=== PATIENT | male | born 1975 ===

== ENCOUNTER 2018-01-23 09:15 | Emergency (ER) | payer OTHER ==
[2018-01-23 09:20] VITALS: O2SAT 98
[2018-01-23 09:21] VITALS: BMI 30.6
[2018-01-23] MEDS ORDERED: Iohexol 240 (50 ml) PO ONE (10:11)
[2018-01-23] MEDS ORDERED: Iohexol 240 (50 ml) ONE (10:45)
[2018-01-23 10:51] LABS: BASO % 0.6 % (0.0-2.0); EOS # 0.2 K/uL (0.0-0.7); EOS % 1.8 % (0.0-4.0); HEMOGLOBIN 17.2 g/dL (12.0-18.0); LYMPH # 2.8 K/uL (1.0-4.3); MEAN CELL VOLUME 89.7 fl (80.0-94.0); MEAN CORPUSCULAR HEMOGLOBIN 31.4 pg (27.0-31.0); MEAN PLATELET VOLUME 10.1 fl (7.2-11.7); MONO # 0.8 K/uL (0.0-0.8); MONO % 9.5 % (0.0-10.0); NEUT # 4.5 K/uL (1.8-7.0); NEUT % 54.1 % (50.0-75.0); NRBC % 0.3 % (0.0-0.0); RBC 5.46 Mil/uL (4.40-5.90); RED CELL DISTRIBUTION WIDTH 13.5 % (11.5-14.5); WHITE BLOOD COUNT 8.3 K/uL (4.8-10.8)
[2018-01-23 10:56] LABS: ALB/GLOB RATIO 1.2 (1.0-2.1); ALBUMIN 4.7 g/dL (3.5-5.0); ALT/SGPT 269 U/L (21-72); AST/SGOT 123 U/L (17-59); BLOOD UREA NITROGEN 8 mg/dl (9-20); GFR AFRICAN-AMERICAN > 60; GFR NON-AFRICAN AMERICAN > 60; LIPASE 71 U/L (23-300)
[2018-01-23 11:08] LABS: URINE BILIRUBIN NEGATIVE (NEGATIVE); URINE BLOOD NEGATIVE (NEGATIVE); URINE CLARITY CLEAR (Clear); URINE COLOR YELLOW (YELLOW); URINE GLUCOSE (UA) NEG (Normal); URINE LEUKOCYTE ESTERASE NEG Leu/uL (Negative); URINE PROTEIN NEGATIVE (NEGATIVE); URINE UROBILINOGEN 0.2-1.0 mg/dL (0.2-1.0)
--- NOTE | 2018-01-23 11:19 | ED PDOC ---
HPI: Abdomen Time Seen by Provider: 01/23/18 09:25 Chief Complaint (Nursing): Male Genitourinary Chief Complaint (Provider): Lower Abdominal Pain History Per: Patient History/Exam Limitations: no limitations Onset/Duration Of Symptoms: Days (x1.5 months) Location Of Pain/Discomfort: Suprapubic Additional Complaint(s): Patient is a 42 y/o male with a history of HLD who presents to the ED complaining of lower abdominal pain with associated lower back pain, onset "a long time ago." Patient reports that he has had the pain for a long time and has been seeing his primary care provider frequently for the past 1.5 months for the pain but has not yet gotten any imaging of his abdomen. This past week however the pain has gotten much worse and has interfered with his ability to sleep, prompting the ED visit. Patient reports that sitting for a long time, urinating, and having bowel movements all exacerbate the pain. He reports painful burning sensation when he urinates or ejaculates. He denies any hematuria. PMD: [place], [place] Past Medical History Reviewed: Historical Data, Nursing Documentation, Vital Signs Vital Signs: Last Vital Signs Temp 98.1 F 01/23/18 15:09 Pulse 78 01/23/18 15:09 Resp 13 01/23/18 15:09 BP 120/74 01/23/18 15:09 Pulse Ox 98 01/23/18 15:12 - Medical History PMH: Hypercholesterolemia - Surgical History Surgical History: No Surg Hx - Family History Family History: States: Unknown Family Hx - Social History Current smoker - smoking cessation education provided: No Alcohol: None Drugs: Denies - Allergies Allergies/Adverse Reactions: Allergies Allergy/AdvReac Type Severity Reaction Status Date / Time No Known Allergies Allergy Verified 01/23/18 09:40 Review of Systems ROS Statement: Except As Marked, All Systems Reviewed And Found Negative Constitutional: Negative for: Fever Gastrointestinal: Positive for: Other (painful bowel movements) Genitourinary Male: Positive for: Dysuria, Frequency. Negative for: Hematuria Musculoskeletal: Positive for: Back Pain (lower) Physical Exam - Reviewed Nursing Documentation Reviewed: Yes Vital Signs Reviewed: Yes - Physical Exam Appears: Positive for: Non-toxic, No Acute Distress Head Exam: Positive for: ATRAUMATIC, NORMOCEPHALIC Skin: Positive for: Normal Color, Warm, Dry Eye Exam: Positive for: EOMI, Normal appearance, PERRL ENT: Positive for: Normal ENT Inspection Neck: Positive for: Normal, Painless ROM, Supple Cardiovascular/Chest: Positive for: Regular Rate, Rhythm. Negative for: Murmur Respiratory: Positive for: Normal Breath Sounds. Negative for: Respiratory Distress Gastrointestinal/Abdominal: Positive for: Normal Exam, Soft, Tenderness ( suprapubic tenderness to palpation) Back: Positive for: Normal Inspection. Negative for: L CVA Tenderness, R CVA Tenderness, Vertebral Tenderness Extremity: Positive for: Normal ROM. Negative for: Pedal Edema, Deformity Neurologic/Psych: Positive for: Alert, Oriented. Negative for: Motor/Sensory Deficits - Laboratory Results Result Diagrams: 01/23/18 10:31 07 10:31 - ECG O2 Sat by Pulse Oximetry: 98 (RA) Pulse Ox Interpretation: Normal Medical Decision Making Medical Decision Making: Time: 10:11 Initial Impression: suprapubic pain rule out uti, electrolute abnormality, infection or inflammation Initial Plan: --CT Abdomen pelvis PO & IV contrast --CMP --Lipase --CBC with differential --Omnipaque 50 ml PO --Urine C&S --Urinalysis Time: 13:28 CT abd & pelvis FINDINGS: LOWER THORAX: Heart size is borderline/mildly enlarged. No significant pericardial effusion. There is a small hiatal hernia. Lung bases clear without focal consolidation. There is a vague translucent opacity in the left posterior sulcus of likely representing some minor postinflammatory sequela. LIVER: The liver is mildly enlarged measuring nearly 19 cm in CC dimension. Moderate diffuse fatty hepatic infiltration. No obvious hepatic masses or collections identified. . Portal and splenic veins are opacified. GALLBLADDER AND BILE DUCTS: Gallbladder is slightly under distended likely due to nonfasting state however no intraluminal calculi PANCREAS: Unremarkable. No gross lesion or ductal dilatation. SPLEEN: Spleen exhibits normal size and attenuation pattern without mass collection or calcification. ADRENALS: There are no adrenal lesions. KIDNEYS AND URETERS: Kidneys demonstrate symmetric nephrograms. No evidence of nephrolithiasis or hydronephrosis. There is a elliptical shaped low-attenuation focus measuring 18 mm lower pole right kidney with Hounsfield units approximately range between 9.0 - 19.5. Findings probably represent a hyperdense cyst. Renal ultrasound could confirm exclude any solid component. VASCULATURE: Unremarkable. No abdominal aortic aneurysm. BOWEL: Visualized loops of small bowel exhibit normal contour and caliber. No evidence of acute mechanical small bowel obstruction. . Stool and air seen throughout the large bowel. APPENDIX: Normal appendix without evidence of a surrounding periappendiceal inflammatory changes. PERITONEUM: Unremarkable. No free fluid. No free air. Tiny fat containing umbilical hernia. LYMPH NODES: Unremarkable. No enlarged lymph nodes. BLADDER: Urinary bladder incompletely distended which in part accounts for thick-walled appearance. Muscular hypertrophy may contribute. REPRODUCTIVE: Unremarkable. BONES: N minor multilevel degenerative spondylosis of the lower thoracic and lumbar spine. OTHER FINDINGS: None. IMPRESSION: Mild hepatomegaly with moderate fatty hepatic infiltration. No acute intra abdominal pathology Probable hyperdense cyst lower pole right kidney as above. Time: 14:50 pt aware of lab resutls. --Patient's lab showed elevated LFTs otherwise no clinically significant results , patient informed of lab results. Patient given instructions to follow up with outpatient treatment at [facility] and a referral for urology as requested. ----- Scribe Attestation: Documented by Marvin Neal, acting as a scribe for Johnny Vanessa MD Provider Scribe Attestation: All medical record entries made by the Scribe were at my direction and personally dictated by me. I have reviewed the chart and agree that the record accurately reflects my personal performance of the history, physical exam, medical decision making, and the department course for this patient. I have also personally directed, reviewed, and agree with the discharge instructions and disposition. Disposition - Clinical Impression Clinical Impression: Abdominal pain - Patient ED Disposition Is Patient to be Admitted: No Counseled Patient/Family Regarding: Studies Performed, Diagnosis, Need For Followup - Disposition Referrals: [facility] [Outside] [facility] [Outside] Lyle Andre MD [Staff Provider] - Disposition: Routine/Home Disposition Time: 14:40 Condition: IMPROVED Additional Instructions: follow up with as an outpatient in 1-2 days your liver function tests are elevated, follow up for that return to the ED with any worsening or concerning symptoms Instructions: Stomach Ache and Stomach Upset Forms: [facility] (Thai) Print Language: BHUTANESE
[2018-01-23] MEDS ORDERED: Iohexol 300 100 ML IJ ONE (12:45)
[2018-01-23] MEDS ORDERED: Sodium Chloride 0.9% 50 ML IV ONE (12:46)
--- NOTE | 2018-01-23 13:56 | CT ---
Date of service: 01/23/2018 PROCEDURE: CT Abdomen and Pelvis with contrast HISTORY: abd pain COMPARISON: No prior study available comparison TECHNIQUE: Contrast dose: 95 cc Omnipaque 300 Radiation dose: Total exam DLP = 585.26 mGy-cm. This CT exam was performed using one or more of the following dose reduction techniques: Automated exposure control, adjustment of the mA and/or kV according to patient size, and/or use of iterative reconstruction technique. FINDINGS: LOWER THORAX: Heart size is borderline/mildly enlarged. No significant pericardial effusion. There is a small hiatal hernia. Lung bases clear without focal consolidation. There is a vague translucent opacity in the left posterior sulcus of likely representing some minor postinflammatory sequela. LIVER: The liver is mildly enlarged measuring nearly 19 cm in CC dimension. Moderate diffuse fatty hepatic infiltration. No obvious hepatic masses or collections identified. . Portal and splenic veins are opacified. GALLBLADDER AND BILE DUCTS: Gallbladder is slightly under distended likely due to nonfasting state however no intraluminal calculi PANCREAS: Unremarkable. No gross lesion or ductal dilatation. SPLEEN: Spleen exhibits normal size and attenuation pattern without mass collection or calcification. ADRENALS: There are no adrenal lesions. KIDNEYS AND URETERS: Kidneys demonstrate symmetric nephrograms. No evidence of nephrolithiasis or hydronephrosis. There is a elliptical shaped low-attenuation focus measuring 18 mm lower pole right kidney with Hounsfield units approximately range between 9.0 - 19.5. Findings probably represent a hyperdense cyst. Renal ultrasound could confirm exclude any solid component. VASCULATURE: Unremarkable. No abdominal aortic aneurysm. BOWEL: Visualized loops of small bowel exhibit normal contour and caliber. No evidence of acute mechanical small bowel obstruction. . Stool and air seen throughout the large bowel. APPENDIX: Normal appendix without evidence of a surrounding periappendiceal inflammatory changes. PERITONEUM: Unremarkable. No free fluid. No free air. Tiny fat containing umbilical hernia. LYMPH NODES: Unremarkable. No enlarged lymph nodes. BLADDER: Urinary bladder incompletely distended which in part accounts for thick-walled appearance. Muscular hypertrophy may contribute. REPRODUCTIVE: Unremarkable. BONES: N minor multilevel degenerative spondylosis of the lower thoracic and lumbar spine. OTHER FINDINGS: None. IMPRESSION: Mild hepatomegaly with moderate fatty hepatic infiltration. No acute intra abdominal pathology Probable hyperdense cyst lower pole right kidney as above.
[2018-01-23 15:49] VITALS: BP 120/74; PULSE 78; RESP 13; TEMP 98.1
== END 2018-01-23 15:09 | disposition home or self-care (01) ==
LOC: H.ER 09:15
DX: R10.9 Unspecified abdominal pain (principal); R94.5 Abnormal results of liver function studies; E78.00 Pure hypercholesterolemia, unspecified
CPT/HCPCS: 74177; 80053; 81003; 83690; 85025; 87086; 99283; Q9966; Q9967

== ENCOUNTER 2018-09-01 21:31 | Emergency (ER) | payer SELFPAY ==
[2018-09-01 21:31] VITALS: BMI 30.6
--- NOTE | 2018-09-01 22:09 | ED PDOC ---
HPI: Abdomen Time Seen by Provider: 09/01/18 21:44 Chief Complaint (Nursing): Abdominal Pain Chief Complaint (Provider): Abdominal Pain History Per: Patient History/Exam Limitations: no limitations Onset/Duration Of Symptoms: Days Current Symptoms Are (Timing): Still Present Additional Complaint(s): 43 y/o male presents to the ED for evaluation of worsening lower abdominal pain associated with dysuria, genital pain, rectal pain, pain with defecating, chills, headache and occasional pain to the legs and lower back, onset more than one month ago. Patient reports of being evaluated at the [facility] one month ago, prescribed a 6 week course of Cipro and told to follow up in 2 months. Patient has not finished antibiotic course yet. Patient states have worsened today and have become associated with a feeling of painful pressure in the rectum. Patient states he was not given a referral to see a Urologist at last visit at the Clinic. Otherwise, patient denies taking medications for symptoms, fever, nausea, vomiting and diarrhea. PMD: Jasmina Fuentes Past Medical History Reviewed: Historical Data, Nursing Documentation, Vital Signs Vital Signs: Last Vital Signs Temp 98.1 F 09/01/18 21:37 Pulse 77 09/01/18 21:37 Resp 17 09/01/18 21:37 BP 134/89 09/01/18 21:37 Pulse Ox 99 09/01/18 21:37 - Medical History PMH: Hypercholesterolemia - Surgical History Surgical History: No Surg Hx - Family History Family History: States: Unknown Family Hx - Home Medications Home Medications: Ambulatory Orders Medication Instructions Recorded Dicyclomine [Dicyclomine HCl] 10 mg PO TID #15 cap 09/01/18 Naproxen 500 mg PO BID #30 tab 09/01/18 - Allergies Allergies/Adverse Reactions: Allergies Allergy/AdvReac Type Severity Reaction Status Date / Time No Known Allergies Allergy Verified 01/23/18 09:40 Review of Systems ROS Statement: Except As Marked, All Systems Reviewed And Found Negative Constitutional: Positive for: Chills. Negative for: Fever Gastrointestinal: Positive for: Abdominal Pain, Rectal Pain, Other (PAIN WITH DEFECATING). Negative for: Nausea, Vomiting Genitourinary Male: Positive for: Dysuria, Other (GENITAL PAIN) Musculoskeletal: Positive for: Back Pain, Leg Pain Neurological: Positive for: Headache Physical Exam - Reviewed Nursing Documentation Reviewed: Yes Vital Signs Reviewed: Yes - Physical Exam Appears: Positive for: Uncomfortable Head Exam: Positive for: ATRAUMATIC, NORMOCEPHALIC Skin: Positive for: Normal Color, Warm, Dry Eye Exam: Positive for: Normal appearance, EOMI, PERRL Neck: Positive for: Normal, Painless ROM, Supple Cardiovascular/Chest: Positive for: Regular Rate, Rhythm. Negative for: Murmur Respiratory: Positive for: Normal Breath Sounds. Negative for: Respiratory Distress Gastrointestinal/Abdominal: Positive for: Tenderness (Suprapubic tenderness) Back: Positive for: Normal Inspection. Negative for: L CVA Tenderness, R CVA Tenderness, Vertebral Tenderness Extremity: Positive for: Normal ROM. Negative for: Deformity Neurologic/Psych: Positive for: Alert, Oriented. Negative for: Motor/Sensory Deficits - Laboratory Results Result Diagrams: 09/01/18 22:05 09/01/18 22:05 - ECG O2 Sat by Pulse Oximetry: 99 (RA) Pulse Ox Interpretation: Normal - Progress Re-evaluation Time: 23:57 Condition: Re-examined, Improved Medical Decision Making Medical Decision Making: Time: 2200 Impression: Acute on chronic abdominal pain and dysuria Differentials include but not limited to UTI and prostatis Rule out colitis Less likely appendicitis Plan: -- CT Abd/Pelvis IV Contrast -- BMP -- ED Urine Dipstick -- CBC with Differentials -- Chlamydia/GC RNA, TMA -- Toradol 30 mg IVP -- Urine Culture -- Urinalysis EXAM: CT Abdomen and Pelvis with IV contrast CLINICAL HISTORY: Low abd pain TECHNIQUE: Axial computed tomography images of the abdomen and pelvis with intravenous contrast. 495.69 mGy-cm CONTRAST: With; [id number] 95ML COMPARISON: CT\SR - ABD PELVIS PO IV CONTRAST - 01/23/2018 12:50 PM EDT FINDINGS: LUNG BASES: Mild atelectasis in the visualized lung bases. LIVER: There is diffuse fatty infiltration of liver. GALLBLADDER AND BILE DUCTS: The gallbladder appears within normal limits. No radioopaque gallstones are seen. No biliary ductal dilatation is evident. PANCREAS: Unremarkable. SPLEEN: Unremarkable. ADRENAL GLANDS: Unremarkable. KIDNEYS, URETERS, AND BLADDER: There is a 2 cm right lower pole renal cyst. Bladder is decompressed. STOMACH AND BOWEL: Mild constipation the colon. Numerous, normal caliber fluid-filled bowel loops. This can be normal and is nonspecific. However, this can be seen in enteritis. Please correlate clinically. APPENDIX: Normal appendix. PERITONEUM: No free fluid. No free air. LYMPH NODES: No lymphadenopathy is evident. REPRODUCTIVE: Unremarkable as visualized. VASCULATURE: No evidence of abdominal aortic aneurysm. BONES: Minimal multilevel degenerative spine changes. IMPRESSION: 1. There is diffuse fatty infiltration of liver. 2. Mild constipation the colon. 3. Numerous, normal caliber fluid-filled bowel loops. This can be normal and is nonspecific. However, this can be seen in enteritis. Please correlate clinically. 4. Additional and incidental findings as described, please see comments. Scribe Attestation: Documented by Juan Pablo Valente, acting as a scribe for Elma Logan MD. Provider Scribe Attestation: All medical record entries made by the Scribe were at my direction and personally dictated by me. I have reviewed the chart and agree that the record accurately reflects my personal performance of the history, physical exam, medical decision making, and the department course for this patient. I have also personally directed, reviewed, and agree with the discharge instructions and disposition. Disposition - Clinical Impression Clinical Impression: Abdominal pain, Dysuria, Enteritis - Patient ED Disposition Is Patient to be Admitted: No Doctor Will See Patient In The: Office Counseled Patient/Family Regarding: Studies Performed, Diagnosis, Need For Followup - Disposition Referrals: Fiorella Lee MD [Medical Doctor] - Disposition: Routine/Home Disposition Time: 23:58 Condition: GOOD Additional Instructions: SISAC HINES, thank you for letting us take care of you today. Your provider was Elma Logan MD and you were treated for ABD PAIN, HEADACHE. The emergency medical care you received today was directed at your acute symptoms. If you were prescribed any medication, please fill it and take as directed. It may take several days for your symptoms to resolve. Return to the Emergency Department if your symptoms worsen, do not improve, or if you have any other problems. Please contact your doctor or call one of the physicians/clinics you have been referred to that are listed on the Patient Visit Information form that is included in your discharge packet. Bring any paperwork you were given at discharge with you along with any medications you are taking to your follow up visit. Our treatment cannot replace ongoing medical care by a primary care provider outside of the emergency department. Thank you for allowing the [facility] team to be part of your care today. If you had an X-Ray or CT scan: A Radiologist will review the ED reading if any change in treatment is needed we will contact you. If you had a blood, urine, or wound culture: It will take several days for the results, if any change in treatment is needed we will contact you. If you had an STI test: It will take 48 hours for the results. Please call after 1 week if you have not heard back. Prescriptions: Dicyclomine [Dicyclomine HCl] 10 mg PO TID #15 cap Naproxen 500 mg PO BID #30 tab Instructions: Dysuria, Adult (DC), Chronic Pelvic Pain (DC)
[2018-09-01 22:22] LABS: BASO # 0.1 K/uL (0.0-0.2); BASO % 0.7 % (0.0-2.0); EOS # 0.2 K/uL (0.0-0.7); EOS % 2.7 % (0.0-4.0); HEMOGLOBIN 15.9 g/dL (12.0-18.0); LYMPH % 35.3 % (20.0-40.0); MEAN CELL VOLUME 90.1 fl (80.0-94.0); MEAN CORPUSCULAR HEMOGLOBIN 30.9 pg (27.0-31.0); MEAN CORPUSCULAR HGB CONC 34.3 g/dL (33.0-37.0); MEAN PLATELET VOLUME 9.8 fl (7.2-11.7); MONO # 0.6 K/uL (0.0-0.8); MONO % 7.6 % (0.0-10.0); NEUT # 4.6 K/uL (1.8-7.0); NEUT % 53.7 % (50.0-75.0); NRBC % 0.1 % (0.0-0.0); RBC 5.13 Mil/uL (4.40-5.90); WHITE BLOOD COUNT 8.5 K/uL (4.8-10.8)
[2018-09-01 22:32] LABS: BLOOD UREA NITROGEN 14 mg/dl (9-20); CALCIUM 9.6 mg/dL (8.4-10.2); GFR NON-AFRICAN AMERICAN > 60
[2018-09-01] MEDS ORDERED: Sodium Chloride 0.9% 50 ML IV ONE (22:44)
[2018-09-01] MEDS ORDERED: Iohexol 300 100 ML IJ ONE (22:44)
[2018-09-01 23:02] LABS: URINE BILIRUBIN NEGATIVE (NEGATIVE); URINE BLOOD NEGATIVE (NEGATIVE); URINE CLARITY CLEAR (Clear); URINE COLOR YELLOW (YELLOW); URINE GLUCOSE (UA) NEG (NEGATIVE); URINE LEUKOCYTE ESTERASE NEG Leu/uL (Negative); URINE PROTEIN NEGATIVE (NEGATIVE); URINE UROBILINOGEN 0.2-1.0 mg/dL (0.2-1.0)
[2018-09-02 00:07] VITALS: BP 131/74; PULSE 78; RESP 16; TEMP 98.6; O2SAT 100
--- NOTE | 2018-09-02 10:19 | CT ---
Date of service: 09/01/2018 PROCEDURE: CT Abdomen and Pelvis. HISTORY: Lower abdominal pain COMPARISON: Comparison made with prior CT scan abdomen pelvis 01/23/2018. TECHNIQUE: Contiguous axial images of the abdomen and pelvis performed following intravenous injection of approximately 95 cc Omnipaque 300 contrast material. Additional 2D sagittal and coronal reformats generated. Radiation dose: Total exam DLP = 495.69 mGy-cm. This CT exam was performed using one or more of the following dose reduction techniques: Automated exposure control, adjustment of the mA and/or kV according to patient size, and/or use of iterative reconstruction technique. FINDINGS: LOWER THORAX: Mild passive/dependent type atelectasis both posterior lower lung thibodeaux. There is a focal rounded translucent opacity left medial lung base. Rule out pneumonitis. Developing alveolar-type infiltrate not excluded.. No effusion or basilar pneumothorax. Heart size within range of normal. No significant pericardial effusion. Tiny hiatal hernia. LIVER: Liver exhibits relatively normal size measuring approximately 17 cm in CC dimension. Moderate to significant fatty hepatic infiltration. No obvious parenchymal nor extra-axial mass or collection identified.. Portal and splenic veins are opacified. GALLBLADDER AND BILE DUCTS: Gallbladder is incompletely distended. No evidence of intraluminal gallbladder calculi PANCREAS: Pancreas appears grossly unremarkable without masses collections calcifications. No significant pancreatic ductal dilatation SPLEEN: Unremarkable. No splenomegaly. ADRENALS: No adrenal lesions.. KIDNEYS AND URETERS: Kidneys demonstrate symmetric nephrograms. No evidence of nephrolithiasis or hydronephrosis. Redemonstrated is an approximately 2 cm x 1.4 cm elliptical shaped low-attenuation posterior cortex lower pole left kidney with Hounsfield units in the upper teens; this probably represents a hyperdense cyst and appears essentially unchanged. BLADDER: Urinary bladder incompletely distended which in part accounts for thick-walled appearance; muscular hypertrophy presumably contributes however correlation with urinalysis recommended to exclude cystitis. REPRODUCTIVE: Prostate gland measures approximately 3.9 cm in transverse dimension. APPENDIX: Normal-appearing appendix. BOWEL: Evaluation of the bowel is limited due to the lack of oral contrast material. The stomach is incompletely distended. Visualized loops of small bowel exhibit normal contour and caliber. No evidence of acute mechanical small bowel obstruction. Stool and air seen throughout the large bowel. Scattered colonic diverticula seen along the sigmoid and distal descending colon however no radiographic evidence of acute diverticulitis... PERITONEUM: Unremarkable. No fluid collection. No free air. Small fat containing umbilical hernia. LYMPH NODES: Unremarkable. No enlarged lymph nodes. VASCULATURE: Unremarkable. No aortic aneurysm. No aortic atherosclerotic calcification or mural plaque present. BONES: Mild multilevel degenerative spondylosis of the lower thoracic and lumbar spine. OTHER FINDINGS: None. IMPRESSION: The There is a focal rounded translucent opacity left medial lung base. Rule out pneumonitis. Developing alveolar-type infiltrate not excluded.. Moderate to significant fatty infiltration. Diverticulosis without radiographic evidence of acute diverticulitis. 2 cm x 1.4 cm elliptical shaped low-attenuation lesion posterior aspect lower pole right kidney again noted. This probably represents hyperdense cyst and appears unchanged from prior exam See above discussion for additional details, findings and recommendations..
== END 2018-09-02 00:07 | disposition home or self-care (01) ==
LOC: H.ER 21:31
DX: R10.9 Unspecified abdominal pain (principal); R30.0 Dysuria; K52.9 Noninfective gastroenteritis and colitis, unspecified
CPT/HCPCS: 74177; 80048; 81003; 85025; 87086; 87491; 87591; 96374; J1885; Q9967